=== PATIENT | female | born 2000 | race Caucasian/White ===

== ENCOUNTER 2019-02-07 07:42 | Emergency (ER) | payer MEDICAID, SELFPAY ==
[2019-02-07 07:43] VITALS: BP 148/82; PULSE 104; RESP 18; TEMP 35.9; O2SAT 96; BMI 35.5
--- NOTE | 2019-02-07 08:02 | CT_ITS ---
STUDY: CT ABDOMEN AND PELVIS WITHOUT CONTRAST REASON FOR EXAM: Female, 18 years old. Left-sided abdominal pain and nausea. RADIATION DOSAGE (If Supplied By Facility): CTDIvol = ( 12.24 ) mGy, DLP = ( 651.47 ) mGycm TECHNIQUE: Transaxial images were obtained from the dome of the diaphragm to the symphysis pubis without oral contrast, and without intravenous contrast. Sagittal and coronal images were reconstructed. Individualized dose optimization techniques were used for this CT. COMPARISON: None. FINDINGS: The visualized lung bases are unremarkable. The visualized portions of the heart are within normal limits. Normal liver. Normal gallbladder and extrahepatic biliary system. Normal spleen. Normal pancreas. Normal bilateral adrenal glands. Normal right kidney. There is engorgement of the left kidney. Mild degree of left hydronephrosis and perinephric and periureteric stranding. There is evidence of a 7.3 mm calculus by 3.5 mm calculus at the left ureterovesical junction. Normal visualized stomach. Normal small intestine. Normal colon. The appendix is visualized and appears normal. Normal abdominal aorta. Normal inferior vena cava. Normal retroperitoneum. Normal urinary bladder. Small bilateral benign appearing inguinal lymph nodes. Normal abdominal wall. Normal osseous structures. CT/Abdomen/Pelvis without Cont IMPRESSION: 7.3 mm x 3.5 mm calculus at the left ureterovesical junction causing a mild degree of left hydronephrosis with left ureteric and perinephric stranding. Electronically Signed: Abdelrahman Figueroa, at 11:37 EDT , Service support ,
--- NOTE | 2019-02-07 08:04 | ED.VISSUMM ---
- ER Visit Summary Date of Service: 02/07/19 Chief Complaint: Abdominal pain History of Present Illness: The patient is a 18 F who presents with left-sided abdominal pain that began this morning. Patient states the pain is aching and sharp. Patient admits to some nausea but denies any vomiting. Patient states she has been having some diarrhea. Patient states she is also currently on her menstrual cycle. Patient also admits to some dizziness. Patient denies any dysuria. Patient admits to subjective fevers but did not take her temperature. Patient states the pain is localized to the left lower quadrant but radiates around to the left flank. Physical Examination: Vital signs are stable. Patient is afebrile. Patient is in no acute distress. Oral mucosa is pink and moist. Neck is supple. Trachea is midline. There is no JVD noted. Heart was regular rate and rhythm. Lungs are clear and equal bilaterally. Abdomen is soft. There is some left lower quadrant tenderness and left CVA tenderness. There is no rebound or guarding noted. Bowel sounds are normal. Cranial nerves II through XII are intact. There are no focal motor or sensory deficits noted. Test Results: CBC showed a mild anemia with a hemoglobin of 8.4 and hematocrit 26.0. Basic metabolic profile showed potassium 2.3, sodium of 148, and chloride of 122. Anion gap was normal. Bicarb was 17. Arterial blood gas showed pH of 7.37 with a PCO2 of 35, PO2 of 93, bicarb of 20.5, and oxygen saturation 97% on room air. Urinalysis shows 25-50 red blood cells. There is no evidence of urinary tract infection. CT scan of the abdomen pelvis shows a 7.3 x 3.5 mm left distal ureteral calculus at the ureterovesicular junction. There is hydronephrosis and hydroureter noted. Emergency Department Course and Treatment: Patient was given IV fluids, Toradol, and Zofran. Patient was also given 40 mEq of oral potassium and 5 mEq of IV potassium. Patient felt better on reevaluation. Patient was able to tolerate oral fluids. Case was discussed with Dr. Craven. He will follow-up with the patient in his office. Patient was given prescription for [place]. Patient was instructed to drink plenty of fluids. Patient was instructed to return if worse in any way. Patient understood and was agreeable with the plan. All questions were answered. Disposition: Discharge home Impression: 1. Left ureteral calculus 2. Hypokalemia This note was generated with real trends dictation software. It may contain incorrect words, spelling, and punctuation that were not noted in review of the chart prior to signing ED Disposition - Plan for ED Patient: Disposition: Home or Assisted Living Diagnosis: Left ureteral calculus Instructions: ED [facility] Prescriptions: Hydrocodone Bitart/Apap 5-325 [[place] 5MG-325MG] 1 tab PO Q6H PRN PRN 3 Days #10 tab PRN Reason: Pain Referrals: Care Physician,No Primary [Primary Care Provider] - Rafat Craven MD [STAFF PHYSICIAN] - 3-5 Days
--- NOTE | 2019-02-07 08:08 | ED.DCSUM_ITS ---
- ER Visit Summary Date of Service: 02/07/19 Chief Complaint: Abdominal pain History of Present Illness: The patient is a 18 F who presents with left-sided abdominal pain that began this morning. Patient states the pain is aching and sharp. Patient admits to some nausea but denies any vomiting. Patient states she has been having some diarrhea. Patient states she is also currently on her menstrual cycle. Patient also admits to some dizziness. Patient denies any dysuria. Patient admits to subjective fevers but did not take her temperature. Patient states the pain is localized to the left lower quadrant but radiates around to the left flank. Physical Examination: Vital signs are stable. Patient is afebrile. Patient is in no acute distress. Oral mucosa is pink and moist. Neck is supple. Trachea is midline. There is no JVD noted. Heart was regular rate and rhythm. Lungs are clear and equal bilaterally. Abdomen is soft. There is some left lower quadrant tenderness and left CVA tenderness. There is no rebound or guarding noted. Bowel sounds are normal. Cranial nerves II through XII are intact. There are no focal motor or sensory deficits noted. Test Results: CBC showed a mild anemia with a hemoglobin of 8.4 and hematocrit 26.0. Basic metabolic profile showed potassium 2.3, sodium of 148, and chloride of 122. Anion gap was normal. Bicarb was 17. Arterial blood gas showed pH of 7.37 with a PCO2 of 35, PO2 of 93, bicarb of 20.5, and oxygen saturation 97% on room air. Urinalysis shows 25-50 red blood cells. There is no evidence of urinary tract infection. CT scan of the abdomen pelvis shows a 7.3 x 3.5 mm left distal ureteral calculus at the ureterovesicular junction. There is hydronephrosis and hydroureter noted. Emergency Department Course and Treatment: Patient was given IV fluids, Toradol, and Zofran. Patient was also given 40 mEq of oral potassium and 5 mEq of IV potassium. Patient felt better on reevaluation. Patient was able to tolerate oral fluids. Case was discussed with Dr. Craven. He will follow-up with the patient in his office. Patient was given prescription for [place]. Patient was instructed to drink plenty of fluids. Patient was instructed to return if worse in any way. Patient understood and was agreeable with the plan. All questions were answered. Disposition: Discharge home Impression: 1. Left ureteral calculus 2. Hypokalemia This note was generated with [employer] dictation software. It may contain incorrect words, spelling, and punctuation that were not noted in review of the chart p rior to signing ED Disposition - Plan for ED Patient: Disposition: Home or Assisted Living Diagnosis: Left ureteral calculus Instructions: ED Stone Renal W Colic Prescriptions: Hydrocodone Bitart/Apap 5-325 [[place] 5MG-325MG] 1 tab PO Q6H PRN PRN 3 Days #10 tab PRN Reason: Pain Referrals: Care Physician,No Primary [Primary Care Provider] - Rafat Craven MD [STAFF PHYSICIAN] - 3-5 Days
[2019-02-07] MEDS: 0.9% Normal Saline 1,000 ML 1000 ML IV ×2 (08:26→10:29)
[2019-02-07] MEDS: Ondansetron 4 MG/2 ML Vial IV (08:26)
[2019-02-07] MEDS: Ketorolac 30 MG/ML Syringe IV (08:26)
[2019-02-07 08:43] LABS: Basophil# 0.02 X10^3/uL; Basophil% 0.3 % (0-1); Eosinophil# 0.03 X10^3/uL; Eosinophils% 0.4 % (0-5); Hemoglobin 8.4 g/dl (12.0-15.0); Lymphocyte % 12.3 % (19-41); Mean Corp Hgb Conc 32.3 g/gl (32-36); Mean Corpuscular Hgb 26.8 pg (27.0-32.0); Mean Corpuscular Volume 83.1 fL (81-99); Mean Platelet Vol. 10.1 fl (6.2-12.0); Monocyte# 0.33 X10^3/uL; Monocyte% 4.5 % (0-10); Neutrophil % 82.4 % (47-70); Platelet Count 166 K/mm3 (150-450); RBC Distribution Width CV 14.5 % (11.6-14.6); RBC Distribution Width SD 42.4 fl (35.1-43.9); Red Blood Count 3.13 M/mm3 (4.2-5.4); White Blood Count 7.3 K/mm3 (4.4-11.0)
[2019-02-07 08:50] LABS: POSITIVE COUNT NO; POSITIVE DIFFERENTIAL NO; POSITIVE MORPHOLOGY NO
[2019-02-07 08:56] LABS: Anion Gap 9 (5-15); BUN 8 mg/dL (7-18); BUN/Creat Ratio 19.7 RATIO (10-20); Calcium,Total 5.8 mg/dL (8.5-10.1); Chloride 122 mmol/L (98-107); Creatinine, Serum 0.41 mg/dL (0.55-1.02); EST Glomerular Filtration Rate 211 mL/min (>60); Est Glom Filt Rate - Afr Amer 256 mL/min (>60); Glucose 86 mg/dL (74-106); Potassium 2.3 mmol/L (3.5-5.1); Sodium Level 148 mmol/L (136-145)
--- NOTE | 2019-02-07 08:56 | ED.RN ---
LAB CALLED WITH CRITICAL OF POTASSIUM 2.[address] DICKEY
[2019-02-07 09:10] LABS: Albumin, Serum 2.3 g/dL (3.2-5.0)
[2019-02-07] MEDS: Potassium Chloride 10mEq/100mL 10 MEQ/100 ML IV.SOLN. 100 MEQ IV BOLUS (09:40)
[2019-02-07 09:56] LABS: Base Excess -5 mmol/L (-2 to +2); Bicarbonate 20.5 mmol/L (22-26); Blood Gas Specimen Type ART; O2 Delivery Device Room Air; PO2 93 mmHG (75-100); SITE R Radial; SO2 97 % (95-99); Time Given 948; Total Carbon Dioxide 22 mmol/L; pH 7.37 (7.35-7.45)
[2019-02-07 10:01] LABS: International Normalized Ratio 1.5; Partial Thromboplast Time 29.8 Seconds (24.1-36.2); Prothrombin Time (Protime)PT. 18.1 SECONDS (11.7-14.9)
[2019-02-07 10:06] LABS: AST(SGOT) 17 U/L (15-37); Alanine Aminotransfer ALT/SGPT 19 U/L (13-56); Albumin, Serum 2.2 g/dL (3.2-5.0); Alkaline Phosphatase 60 U/L (45-117); Bilirubin, Direct 0.08 mg/dL (0.00-0.30); Globulin 2.9 g/dL (2.2-4.2); Lipase 39 U/L (73-393); Protein, Total 5.1 g/dL (6.4-8.2)
[2019-02-07 10:14] LABS: Lactic Acid 1.9 mmol/L (0.4-2.0)
[2019-02-07 10:32] VITALS: BP 129/79; PULSE 110; RESP 20; O2SAT 99
[2019-02-07 11:00] LABS: Internal QC Validated? YES +Cl - CLEAR BKGD; Pregnancy, Serum, hCG Quali. NEGATIVE Negative
[2019-02-07 12:17] LABS: Bacteria 0 SEEN /hpf (None Seen); Mucous, Urine 0 SEEN /hpf (<or=2+)
[2019-02-07 12:26] LABS: Color, Urine Red (Yellow); Glucose, Dipstick Normal (Normal); Ketone-Dipstick Negative (Negative); Leukocyte Esterase-Dipstick 25 /ul (Negative); Nitrite-Dipstick Negative (Negative); Occult Blood-Urine 250 /ul (Negative); Protein-Dipstick Negative (Negative); Specific Gravity, Urine 1.005 (1.002-1.030); Urine Bilirubin Dipstick Negative (Negative); Urine Clarity Sl. Cloudy (Clear); Urine Urobilinogen Normal (Normal)
[2019-02-07 12:28] LABS: Internal QC Validated? YES +Cl - CLEAR BKGD; Pregnancy, Urine Negative Negative
[2019-02-07 12:35] VITALS: BP 122/69; PULSE 100; RESP 18; O2SAT 97
[2019-02-07 12:47] LABS: Red Blood Cells-Urine 25-50 SEEN /hpf (0-5); Squamous Epithelial Cells - UA 0-5 SEEN /hpf (5-10); White Blood Cells 0-5 SEEN /hpf (0-5)
[2019-02-07 13:22] VITALS: BP 124/77; PULSE 61; RESP 15; O2SAT 98
== END 2019-02-07 13:25 | disposition home or self-care (01) ==
PROVIDERS: Emergency Provider Emergency Medicine
DX: N13.2 Hydronephrosis with renal and ureteral calculous obstruction (principal); E87.6 Hypokalemia; R19.7 Diarrhea, unspecified; J02.9 Acute pharyngitis, unspecified; D64.9 Anemia, unspecified; E66.9 Obesity, unspecified
CPT/HCPCS: 36600; 74176; 80048; 80076; 81001; 81025; 82040; 82803; 83605; 83690; 84703; 85025; 85610; 85730; 96361; 96365; 96366; 96374; 96375; 99285; J7030; A4216; J2405